=== PATIENT | female | born 1960 | race Caucasian/White ===

== ENCOUNTER 2019-09-30 10:03 | Emergency (ER) | payer OTHER, SELFPAY ==
[2019-09-30 10:30] VITALS: BP 122/64; PULSE 80; RESP 20; TEMP 37.8; O2SAT 99
--- NOTE | 2019-09-30 10:31 | ED.URI ---
HPI - URI/Sore Throat General Chief Complaint: Upper Respiratory Infection Stated Complaint: head congestion/ear pn Time Seen by Provider: 09/30/19 10:31 Source: patient and RN notes reviewed History of Present Illness HPI Narrative: Patient is a 59-year-old female presents the urgent care with complaints of head congestion and right ear pain since . Patient states that she has had some drainage and popping from the right ear. Has been using Mucinex and allergy medication with minimal relief. Patient denies any fever, chills, nausea, vomiting. No other acute complaints. No acute distress noted. Patient had a plan of care. Related Data Home Medications Medication Instructions Recorded Confirmed atorvastatin 10 mg PO DAILY 09/30/19 09/30/19 levothyroxine [Synthroid] 125 mcg PO DAILY 09/30/19 09/30/19 Allergies Allergy/AdvReac Type Severity Reaction Status Date / Time ampicillin Allergy Intermediate HIVES Verified 03/13/18 12:34 clindamycin Allergy Unknown Diarrhea Verified 09/30/19 10:34 Penicillins Allergy Unknown Hives Verified 09/30/19 10:34 Review of Systems Review of Systems: Narrative: CONSTITUTIONAL: Denies fever, chills, or sweats. EYES: Denies visual changes, redness, or discharge. ENT: Reports of sinus congestion/pressure and right otalgia CARDIOVASCULAR: Denies chest pain, palpitations, or edema. RESPIRATORY: Denies cough or dyspnea. GASTROINTESTINAL: Denies abdominal pain, nausea, vomiting, or diarrhea. GENITOURINARY: Denies dysuria or hematuria. SKIN: Denies rash or itching. MUSCULOSKELETAL: Denies back pain, joint pain, or myalgia. NEUROLOGIC: Denies headache, numbness, or weakness. All other systems reviewed are negative, except as documented in HPI. [facility] Family History Family History (Updated 11/18/16 @ 23:56 by DOCTOR UNKNOWN) Father Asthma Patient's father is Family history of lung cancer, Onset Age: 59 Sibling Patient's sister is in good health Patient's brother is in good health Family history of seizure disorder Mother Cerebrovascular accident Family history of diabetes mellitus in first degree relative Patient's mother is Grandparent Family history of premature coronary heart disease Family history of malignant neoplasm of stomach Family history of Alzheimer's disease Other Diabetes mellitus Family history of allergic disorder Family history of attention deficit hyperactivity disorder (ADHD) Family history of cardiovascular disease Family history of learning disability Family history of osteoarthritis Family history of osteoporosis Social History Social History Smoking status: Never smoker Alcohol intake: never Comments At the time of my signature, I reviewed and agree with the nursing past medical, surgical, social, and family history. There is no relevant family history pertinent to the patient complaint. Exam Narrative: Exam Narrative: GENERAL: This is a well-nourished, well-developed patient, in no apparent distress. HEAD: normocephalic, atraumatic. Mild frontal sinus tenderness EYES: PERRL. Sclera clear/white. Vision is grossly intact. EARS: External ears normal, left auditory canal clear and without drainage, right auditory canal mildly edematous with clear drainage without erythema, bilateral TMs normal without perforation. Hearing grossly intact. NOSE: External nose normal with no obvious nasal discharge, nares without redness, no rhinorrhea. THROAT: Mucous membranes moist, posterior pharynx clear. Moderate postnasal drainage NECK: Neck supple CARDIOVASCULAR: Regular rate and rhythm without murmurs, gallops, or rubs. RESPIRATORY: Clear to auscultation. Breath sounds equal bilaterally. No wheezes, rales, or rhonchi. SKIN: warm, intact with no suspicious lesions or rash, good texture and turgor. NEURO: awake, alert, and oriented to person, place and time. There were no obvious focal neurologic abno
== END 2019-09-30 10:55 | disposition home or self-care (01) ==
PROVIDERS: Emergency Provider Nurse Practitioner Family
DX: J32.9 Chronic sinusitis, unspecified (principal); H60.91 Unspecified otitis externa, right ear; E78.00 Pure hypercholesterolemia, unspecified; E03.9 Hypothyroidism, unspecified
CPT/HCPCS: 99213; G0463

== ENCOUNTER 2021-08-04 12:40 | Emergency (ER) | payer OTHER, SELFPAY ==
[2021-08-04 12:54] VITALS: BP 146/85; PULSE 90; RESP 20; TEMP 37.4; O2SAT 96
[2021-08-04 13:05] VITALS: BP 146/85; PULSE 90; RESP 20; TEMP 37.4; O2SAT 96
--- NOTE | 2021-08-04 13:26 | ED.URI ---
HPI - URI/Sore Throat General Chief Complaint: Upper Respiratory Infection Stated Complaint: Cough,Sinus Time Seen by Provider: 08/04/21 13:15 History of Present Illness HPI Narrative: Greer Wells is a 61-year-old female with a PMH of hypothyroidism and high cholesterol [facility] of sinus congestion x1 week. Patient has no fever, no nausea, vomiting, diarrhea, patient has no sore throat. Patient is not been vaccinated against Covid-has been hesitant to do so and sister of Covid last week but is considering taking the vaccine (waiting for 3rd sisterto take it to see there is no side effects) Related Data Home Medications Medication Instructions Recorded Confirmed atorvastatin 40 mg PO DAILY 08/04/21 08/04/21 diclofenac sodium 75 mg PO DAILY 08/04/21 08/04/21 ergocalciferol (vitamin D2) 1,250 mcg PO WEEKLY 08/04/21 08/04/21 Allergies Allergy/AdvReac Type Severity Reaction Status Date / Time clindamycin Allergy Intermediate Diarrhea Verified 08/04/21 13:05 ampicillin Allergy Mild HIVES Verified 08/04/21 13:05 Penicillins Allergy Mild Hives Verified 08/04/21 13:05 Review of Systems Review of Systems: CONSTITUTIONAL: Denies fever, chills, sweats. EYES: Denies visual changes, redness, discharge. ENT: Denies rhinorrhea, congestion, sore throat, otalgia. He has sinus congestion CARDIOVASCULAR: Denies chest pain, palpitations, edema. RESPIRATORY: Denies dyspnea, wheezing, cough GASTROINTESTINAL: Denies abdominal pain, nausea, vomiting, diarrhea. GENITOURINARY: Denies dysuria, hematuria, abnormal discharge SKIN: Denies rash or itching. NEUROLOGIC: Denies numbness, or focal weakness. PSYCHIATRIC: Denies anxiety or depression. [facility] Past Medical History Medical History High cholesterol Hypothyroid Family History Family History Father Asthma Patient's father is Family history of lung cancer, Onset Age: 59 Sibling Patient's sister is in good health Patient's brother is in good health Family history of seizure disorder Mother Cerebrovascular accident Family history of diabetes mellitus in first degree relative Patient's mother is Grandparent Family history of premature coronary heart disease Family history of malignant neoplasm of stomach Family history of Alzheimer's disease Other Diabetes mellitus Family history of allergic disorder Family history of attention deficit hyperactivity disorder (ADHD) Family history of cardiovascular disease Family history of learning disability Family history of osteoarthritis Family history of osteoporosis Social History Social History Smoking status: Never smoker Alcohol intake: never Comments At time of signature, I agree with nursing past medical, surgical, social and family history. There is no relevant family history pertinent to the presenting complaint. Blood pressure is elevated at this visit;-to follow-up at PCP Exam Narrative: GENERAL: This is a well-nourished, well-developed patient, in mild distress. HEAD: normocephalic, atraumatic. EYES:. Sclera clear/white. Vision is grossly intact. EARS: External ears normal, auditory canals clear and without drainage, some fluid behind TMs. Hearing grossly intact. NOSE: External nose normal with nasal discharge, nares without redness, no rhinorrhea. THROAT: Mucous membranes moist, posterior pharynx mild erythema NECK: Neck supple, non-tender CARDIOVASCULAR: Regular rate and rhythm without murmurs, gallops, or rubs. RESPIRATORY: Clear to auscultation. Breath sounds equal bilaterally. No wheezes, rales, or rhonchi. GASTROINTESTINAL: Abdomen soft, non-tender, SKIN: warm, intact with no suspicious lesions or rash, good texture and turgor. NEURO: awake, alert, and orie
== END 2021-08-04 13:37 | disposition home or self-care (01) ==
PROVIDERS: Emergency Provider Nurse Practitioner; PCP Family Medicine
DX: J32.9 Chronic sinusitis, unspecified (principal); E78.00 Pure hypercholesterolemia, unspecified; E03.9 Hypothyroidism, unspecified
CPT/HCPCS: 99213; G0463

== ENCOUNTER 2024-11-01 10:34 | Outpatient (CLI) | payer MEDICARE, SELFPAY ==
--- NOTE | ~2024-11-01 | US_ITS ---
EXAMINATION:US venous doppler LE RT INDICATION:Right lower extremity pain TECHNIQUE: Multiple grayscale, color flow and Doppler images of the right lower extremity deep venous systems were obtained and reviewed. COMPARISON:No prior studies for comparison. FINDINGS: The common femoral, superficial femoral and popliteal veins demonstrate normal respiratory variation, augmentation and compressibility. Color flow is also seen within the posterior tibial, pe roneal, greater saphenous and profunda veins. IMPRESSION: 1: No lower extremity deep venous thrombosis. Reviewed, dictated and finalized at location B.
--- OUTSIDE RECORDS SUMMARY | 2024-11-01 11:46 | XMS_ITS | Clinical Summary ---
Author Organization [facility] Address [address] [place] [id number] Phone Care Team Providers Care Hotel Maintenance Technician Name Role Phone Unavailable Primary Care Provider Unavailabl e Social History Tobacco Use Types Packs/Day Years Used Date Smoking Tobacco: Never Assessed Comments Unknown Sex and Gender Information Value Date Recorded Sex Assigned at Not on file Legal Sex Female 9:38 AM PHLEBOTOMIST PRN Gender Identity Not on file Sexual Orientation Not on file Plan of Treatment Health Maintenance Due Date Last Done Comments DEXA Bone Density 1958 Hepatitis C Virus (HCV) Screening 1958 TdaP Immunization 1958 Pap Smear 1979 Cervical Cancer Screening (CCS) 1988 HPV/Cotest 1988 Colonoscopy 2003 Colorectal Cancer Screening 2003 Cologuard 2008 Immunochemical Fecal Occult Blood 2008 Mammogram 2008 Pneumococcal Immunization (5 0+ years) (1 of 1 - PCV) 2008 Zoster Immunization (1 of 2) 2008 Influenza Immunization (#1) 2024 SARS-COV-2 Immunization ( - 2023-25 season) 2024 Respiratory Syncytial Virus (RSV) Immunization (Adult) (1 - 1-dose 75+ series) 2033 Hepatitis B Immunization Aged Out No longer eligible based on patient's age to complete this topic Meningococcal Immunization (ACWY) Aged Out No longer eligible based on patient's age to complete this topic Rotavirus Immunization Aged Out No lo nger eligible based on patient's age to complete this topic
--- OUTSIDE RECORDS SUMMARY | 2024-11-01 11:46 | XMS_ITS | Clinical Summary ---
Author Organization [facility] Address [address] [place] [address] Phone Care Team Providers Care Telesales Advisor Name Role Phone Unavailable Primary Care Provider Unavailabl e Family History Medical History Relation Name Comments Breast Cancer Maternal Aunt 30/40s Relation Name Status Comments Maternal Aunt 30/40s Social History Tobacco Use Types Packs/Day Years Used Date Smoking Tobacco: Never Assessed Comments Unknown Sex and Gender Information Value Date Recorded Sex Assigned at Not on file Legal Sex Female 11:41 AM CDT Gender Identity Not on file Sexual Orientation Not on file Plan of Treatment Health Maintenance Due Date Last Done Comments DTAP/TDAP/TD VACCINES (1 - Tdap) 1977 COLORECTAL SCREENING 2003 Colorectal Cancer Screening 2003 FIT-DNA Q 3 years 2003 FIT/FOBT Q 1 year 2003 Flex Sig/CT Colonography Q 5 years 2003 PNEUMOCOCCAL VACCINE 50+ YEARS (1 of 1 - PCV) 07/25/20 08 ZOSTER VACCINE (1 of 2) 2008 BREAST CANCER SCREENING 05/25/2014 05/25/2013 OSTEOPOROSIS SCREENING 2023 INFLUENZA VACCINE (#1) 2024 RSV VACCINE (60+ or ) (1 - 1-dose 75+ series) 2033 Procedures Procedure Name Priority Date/Time Associated Diagnosis Comments MAMMO SCREEN BILAT W OR WO CAD Routine 05/25/2013 12:36 PM CDT Other screening mammogram from Last 3 Months or Most Recently Relevant to Health Maintenance Results * MAMMO DIGITAL SCREEN BILAT (05/25/2013 12:36 PM CDT) Anatomical Region Laterality Modality Breast Bilateral Mammography 05/25/2013 12:3 5 PM CDT Narrative 05/28/2013 10:42 AM CDT BILATERAL FULL FIELD DIGITAL SCREENING MAMMOGRAM WITH CAD, 05/25/13 HISTORY: Routine Screening. TECHNIQUE: Full field digital craniocaudal and mediolateral oblique projections of both breasts were obtained. Computer aided diagnosis was performed. COMPARISON: None. This is the patient's baseline mammogram. BREAST PARENCHYMAL COMPOSITION: Scattered fibroglandular densities. FINDINGS: No suspicious mass, suspicious microcalcifications, or architectural distortion is identified in either breast. Computer aided detection was used in the interpretation of this examination. OVERALL ASSESSMENT: BI-RADS Category 1: Negative. RECOMMENDATION: Annual mammography is recommended. Dictated from [facility] Procedure Note Johanne Villarreal MD - 05/28/2013 BILATERAL FULL FIELD DIGITAL SCREENING MAMMOGRAM WITH CAD, 05/25/13 HISTORY: Routine Screening. TECHNIQUE: Full field digital craniocaudal and mediolateral oblique projections of both breasts were obtained. Computer aided diagnosis was performed. COMPARISON: None. This is the patient's baseline mammogram. BREAST PARENCHYMAL COMPOSITION: Scattered fibroglandular densities. FINDINGS: No suspicious mass, suspicious microcalcifications, or architectural distortion is identified in either breast. Computer aided detection was used in the interpretation of this examination. OVERALL ASSESSMENT: BI-RADS Category 1: Negative. RECOMMENDATION: Annual mammography is recommended. Dictated from [facility] Raisa Lopez MD MAMMO ORDERABLES Final Res ult from Last 3 Months or Most Recently Relevant to Health Maintenance [place] [address] [facility]
== END 2024-11-01 10:35 | disposition home or self-care (01) ==
PROVIDERS: PCP Family Medicine; Visit Provider Family Medicine
DX: M79.604 Pain in right leg (principal); M25.561 Pain in right knee
CPT/HCPCS: 73562; 93971